=== PATIENT | female | born 2000 | race Two or more races ===

== ENCOUNTER 2024-03-27 19:41 | Emergency (ER) | payer OTHER ==
[~2024-03-27] VITALS: Ht 170.2 cm; Wt 81.6 kg
[2024-03-27 19:42] VITALS: BP 138/97; PULSE 96; RESP 16; TEMP 97.5; O2SAT 99
[2024-03-27 19:56] LABS: BASOPHILS % (AUTO) 0.4 % (0.0-2.0); EOSINOPHILS # (AUTO) 0.1 K/uL (0-0.4); HEMATOCRIT 43.5 % (36-48); HEMOGLOBIN 14.6 g/dL (12.0-16.0); LYMPHOCYTES # (AUTO) 2.9 K/uL (2.5-16.5); LYMPHOCYTES % (AUTO) 35.2 % (20.5-51.1); MEAN CORPUSCULAR HEMOGLOBIN 30 pg (27-31); MEAN CORPUSCULAR HGB CONC 33 g/dL (33-37); MEAN CORPUSCULAR VOLUME 88.6 fL (80-94); MONOCYTES # (AUTO) 0.5 K/uL (0.8-1.0); MONOCYTES % (AUTO) 5.9 % (1.7-9.3); NEUTROPHILS # (AUTO) 4.7 K/uL (1.8-7.7); NEUTROPHILS % (AUTO) 57.5 % (42.2-75.2); PLATELET COUNT (AUTO) 222 K/uL (140-450); RED BLOOD CELL COUNT(AUTO) 4.91 MIL/uL (4.20-5.40); RED CELL DISTRIBUTION WIDTH 13.9 % (11.6-13.7); WHITE BLOOD COUNT (AUTO) 8.1 K/uL (4.8-10.8)
[2024-03-27 20:09] LABS: ANION GAP 18.8 (8-16); CALCIUM 8.6 mg/dL (8.5-10.1); CARBON DIOXIDE 22.7 mmol/L (21-32); POTASSIUM 3.5 mmol/L (3.5-5.1)
[2024-03-27] MEDS ORDERED: levETIRAcetam 100 MG/ML VIAL IV ONE (20:22)
[2024-03-27] MEDS: levETIRAcetam 1,000 MG in NACL 0.9% 100 ML IV ONE (20:56)
[2024-03-27] MEDS: KETOROLAC 30 MG/ML VIAL IVP ONE (20:57)
[2024-03-27 21:09] VITALS: BP 120/75; PULSE 98; RESP 16; TEMP 97.5; O2SAT 99
== END 2024-03-27 21:10 | disposition home or self-care (01) ==
LOC: MED 19:41
DX: S01.81XA Laceration without foreign body of other part of head, initial encounter (principal); R56.9 Unspecified convulsions; J45.909 Unspecified asthma, uncomplicated; F17.200 Nicotine dependence, unspecified, uncomplicated; W22.8XXA Striking against or struck by other objects, initial encounter; Y92.89 Other specified places as the place of occurrence of the external cause; Y93.89 Activity, other specified; Y99.8 Other external cause status
CPT/HCPCS: 12011; 36415; 80048; 85025; 96374; 96375; 99284; J1885; J1953